=== PATIENT | male | born 1955 | race Caucasian/White ===

== ENCOUNTER 2022-11-29 08:39 | Observation (INO) | payer OTHER ==
[2022-11-25 09:17] VITALS: BMI 26.4
[2022-11-29 11:35] LABS: #Basophils 0.1 thou/uL (0.0-0.2); #Eosinphils 0.1 thou/uL (0.0-0.7); #Lymphocytes 2.5 thou/uL (1.20-3.40); #Monocytes 1.1 thou/uL (0.11-0.59); #Neutrophils 5.4 thou/uL (1.40-6.50); %Basophils 0.9 % (0.0-1.0); %Eosinophils 1.5 % (0.0-10.0); %Lymphocytes 27.4 % (21.0-51.0); %Monocytes 11.5 % (0.0-10.0); %Neutrophils 58.7 % (42.0-75.0); Hemoglobin 13.2 g/dL (14.0-18.0); Mean Corpuscular HGB CONC 32.1 g/dL (32.0-36.0); Mean Corpuscular Hemoglobin 30.8 pg (27.0-31.0); Mean Corpuscular Volume 95.7 fl (78.0-98.0); Mean Platelet Volume 7.5 fL (7.4-10.4); Platelet Count 257 10x3/uL (130-400); Red Blood Cell (RBC) Count 4.28 mill/uL (4.70-6.10); White Blood Cell (WBC) Count 9.2 10x3/uL (4.8-10.8)
[2022-11-29 11:50] LABS: Anion Gap 13 mmol/L (10-20); BUN (Urea Nitrogen) 15 mg/dL (8.4-25.7); Calc. Creatinine Clearance 109 mL/min (70-130); Calcium 9.7 mg/dL (7.8-10.44); Carbon Dioxide 26 mmol/L (23-31); Chloride 101 mmol/L (98-107); Estimated GFR 96; Glucose 90 mg/dL (80-115); Potassium 3.9 mmol/L (3.5-5.1); Sodium 136 mmol/L (136-145)
[2022-11-29] MEDS ORDERED: Vancomycin 1 GM VIAL ONE (12:57)
[2022-11-29] MEDS ORDERED: Sodium Chloride 0.9% 100 ML ONE (13:18)
[2022-11-29] MEDS ORDERED: CEFAZOLIN 2 GM VIAL ONE (13:18)
[2022-11-29] MEDS ORDERED: fentaNYL PF 100 MCG/2 ML SYRINGE ONE (13:28)
[2022-11-29] MEDS ORDERED: HYDROmorphone 0.5 MG/0.5 ML SYRINGE ONE ×3 (13:29→16:16)
[2022-11-29] MEDS ORDERED: Rocuronium Bromide 10 MG/ML (10ML VIAL) ONE (13:43)
[2022-11-29] MEDS ORDERED: Lidocaine 1% PF 5 ML VIAL ONE (13:43)
[2022-11-29] MEDS ORDERED: Ketorolac Tromethamine 30 MG/ML VIAL ONE (13:43)
[2022-11-29] MEDS ORDERED: Ondansetron PF 4 MG/2 ML Vial ONE (13:43)
[2022-11-29] MEDS ORDERED: Phenylephrine 10 MG/ML VIAL ONE (13:43)
[2022-11-29] MEDS ORDERED: NEOSTIGMINE 3 MG/3 ML SYR 3 MG/3 ML SYRINGE ONE (13:43)
[2022-11-29] MEDS ORDERED: PROPOFOL 200 MG/20 ML VIAL ONE (13:43)
[2022-11-29] MEDS ORDERED: ePHEDrine Sulfate 50 MG/10 ML VIAL ONE (13:43)
[2022-11-29] MEDS ORDERED: Dexamethasone 20 MG/5 ML VIAL ONE (13:43)
[2022-11-29] MEDS ORDERED: GLYCOPYRROLATE/PF 0.2 MG/ML VIAL ONE (13:43)
[2022-11-29] MEDS ORDERED: Morphine 2 MG/ML VIAL SLOW IVP PRN (15:14)
[2022-11-29] MEDS ORDERED: HYDROcodone/Acetaminophen 10/325 mg Tablet PO PRN (15:14)
[2022-11-29] MEDS ORDERED: Promethazine HCl 25 MG/ML VIAL IM PRN ×2 (15:14→15:32)
[2022-11-29] MEDS ORDERED: Milk Of Magnesia 30 ML UDCUP PO PRN (15:14)
[2022-11-29] MEDS ORDERED: Ondansetron PF 4 MG/2 ML Vial IVP PRN (15:14)
[2022-11-29] MEDS ORDERED: Promethazine 25 MG TAB PO PRN (15:14)
[2022-11-29] MEDS ORDERED: Mag-Al 1200 mg/1200 mg/30 ML UDCUP PO PRN (15:14)
[2022-11-29] MEDS ORDERED: traMADol HCl 50 MG TAB PO PRN (15:14)
[2022-11-29] MEDS ORDERED: diphenhydrAMINE 25 MG CAP PO PRN (15:14)
[2022-11-29] MEDS ORDERED: Cyclobenzaprine 10 MG TAB PO PRN (15:14)
[2022-11-29] MEDS ORDERED: Ondansetron HCl/PF 4 MG/2 ML Vial IVP PRN (15:32)
[2022-11-29] MEDS ORDERED: HYDROmorphone 2 MG/ML VIAL SLOW IVP PRN (15:32)
[2022-11-29] MEDS ORDERED: PACU-Morphine 4MG/ML VIAL SLOW IVP PRN (15:32)
[2022-11-29] MEDS ORDERED: fentaNYL 50 mcg/mL 1 mL Vial ONE ×2 (16:32→16:58)
[2022-11-29] MEDS: Gabapentin 300 MG CAP PO SCH ×2 (18:39→21:11)
[2022-11-29] MEDS ORDERED: Propranolol 60 MG TAB PO SCH (21:00)
[2022-11-29] MEDS ORDERED: Montelukast Sodium 10 mg Tablet PO SCH (21:00)
[2022-11-29] MEDS: HYDROcodone/Acetaminophen 10/325 mg Tablet PO PRN (21:10)
[2022-11-29] MEDS: Sodium Chloride 0.9% 1,000 ML IV SCH (21:12)
[2022-11-29] MEDS: CEFAZOLIN 2 GM in Sodium Chloride 0.9% 100 ML IVPB SCH (21:12)
[2022-11-29] MEDS ORDERED: Tamsulosin HCl 0.4 MG CAP PO SCH (23:15)
[2022-11-30] MEDS: HYDROcodone/Acetaminophen 10/325 mg Tablet PO PRN ×2 (05:43→11:37)
[2022-11-30] MEDS: CEFAZOLIN 2 GM in Sodium Chloride 0.9% 100 ML IVPB SCH (05:44)
[2022-11-30] MEDS ORDERED: Mometasone 200 MCG/Formoterol 5 MCG 120 PUFF INHALER INH SCH (07:00)
[2022-11-30] MEDS: Gabapentin 300 MG CAP PO SCH (08:33)
[2022-11-30] MEDS: Sodium Chloride 0.9% 1,000 ML IV SCH (08:38)
[2022-11-30] MEDS ORDERED: DULoxetine 60 MG CAP PO SCH (09:00)
[2022-11-30] MEDS ORDERED: Finasteride 5 MG TAB PO SCH (09:00)
[2022-11-30 12:18] VITALS: BP 141/85; TEMP 97.6
== END 2022-11-30 13:10 | disposition home or self-care (01) ==
LOC: SDC 08:39 → SURG B 15:13
PROVIDERS: ADMIT Neurological Surgery; ATTEND Neurological Surgery
PROC: 01NB0ZZ Release Lumbar Nerve, Open Approach (ICD-10-PCS; principal; 2022-11-29)
PROC: 01NR0ZZ Release Sacral Nerve, Open Approach (ICD-10-PCS; 2022-11-29)
DX: M48.062 Spinal stenosis, lumbar region with neurogenic claudication (principal); M41.9 Scoliosis, unspecified; M48.02 Spinal stenosis, cervical region; R33.9 Retention of urine, unspecified; J44.9 Chronic obstructive pulmonary disease, unspecified; A60.00 Herpesviral infection of urogenital system, unspecified; N40.0 Benign prostatic hyperplasia without lower urinary tract symptoms; I10 Essential (primary) hypertension; Z79.1 Long term (current) use of non-steroidal anti-inflammatories (NSAID); Z79.899 Other long term (current) drug therapy
CPT/HCPCS: 80048; 85025; 93005; 93010; C1713; J1100; J1170; J1885; J2370; J2405; J2704; J3010; J3370; J3490; J7050